=== PATIENT | female | born 1980 | race Caucasian/White ===

== ENCOUNTER 2019-07-04 12:32 | Emergency (ER) | payer OTHER ==
[~2019-07-04] VITALS: Ht 162.6 cm; Wt 61.2 kg
[2019-07-04 13:13] VITALS: BP 122/88
--- NOTE | 2019-07-04 13:16 | NUR ---
ED Nurse Note: pt came in due to mechanical fall c/o neck pain ermd eval done pt will be medicated.
--- NOTE | 2019-07-04 13:17 | Emergency Room Report ---
History of Present Illness General Chief Complaint: Neck Pain Source: Patient Present Illness HPI 39-year-old female presents to the emergency department complaining of 10 out of 10 severity pain diffusely in the soft tissues of the neck and the bilateral trapezius muscles. Patient reports status post slip and fall down some stairs yesterday she states she did not hit her head or have a loss of consciousness. Patient denies midline neck or back pain. Patient reports that she awoke this morning with a stiff neck and pain/tightness with attempts to move her head in certain directions. Patient reports she also has an associated progressive onset headache that did resolve on its own prior to arrival. Patient denies history of headaches. Patient denies taking blood thinning medications she denies nausea, vomiting, dizziness, syncope, weakness, abnormalities in motor movements or paresthesias. Patient reports she primarily landed on her right buttock and has tenderness and bruising to the soft tissue. Patient denies tailbone pain or saddle anesthesia. Patient reports she is ambulatory. She states she has not taken any medications for her symptoms. No other aggravating or relieving factors at this time. Denies fevers or photophobia. Allergies: Coded Allergies: No Known Allergies (Unverified , 07/04/19) Patient History Past Medical History: see triage record Past Surgical History: none Pertinent Family History: none Now: No Reviewed Nursing Documentation: PMH: Agreed; PSxH: Agreed Nursing Documentation-PMH Past Medical History: No History, Except For Review of Systems All Other Systems: negative except mentioned in HPI Physical Exam Vital Signs Date Time Temp Pulse Resp B/P (MAP) Pulse Ox O2 Delivery O2 Flow Rate FiO2 07/04/19 12:43 98.6 102 18 122/88 (99) 99 Room Air Sp02 EP Interpretation: reviewed, normal General Appearance: no apparent distress, alert, GCS 15, non-toxic Head: normocephalic, atraumatic Eyes: bilateral eye normal inspection, bilateral eye PERRL ENT: hearing grossly normal, normal voice Neck: full range of motion, tender lateral - bilateral trapezius muscles, no midline spinous process ttp. No palpable step-offs or obvious deformities in the cervical or thoracic regions. FROM. Respiratory: lungs clear, normal breath sounds, speaking full sentences Cardiovascular #1: regular rate, rhythm Musculoskeletal: normal range of motion, gait/station normal, tender - TTP posterior right thigh/ buttock. Neurologic: alert, motor strength/tone normal, oriented x3, sensory intact, responsive, speech normal Psychiatric: judgement/insight normal Skin: normal inspection Medical Decision Making PA Attestation Dr. Leon is my supervising Physician whom patient management has been discussed with. Diagnostic Impression: Primary Impression: Cervical strain, acute Qualified Codes: S16.1XXA - Strain of muscle, fascia and tendon at neck level , initial encounter Additional Impression: Strain of cervical portion of both trapezius muscles ER Course 39-year-old female presents to the emergency department complaining of 10 out of 10 severity pain diffusely in the soft tissues of the neck and the bilateral trapezius muscles. Patient reports status post slip and fall down some stairs yesterday she states she did not hit her head or have a loss of consciousness. Patient denies midline neck or back pain. Patient reports that she awoke this morning with a stiff neck and pain/tightness with attempts to move her head in certain directions. Patient reports she also has an associated progressive onset headache that did resolve on its own prior to arrival. Patient denies history of headaches. Patient denies taking blood thinning medications she denies nausea, vomiting, dizziness, syncope, weakness, abnormalities in motor movements or paresthesias. Patient reports she primarily landed on her right buttock and has tenderness and bruising to the soft tissue. Patient denies tailbone pain or saddle anesthesia. Patient reports she is ambulatory. She states she has not taken any medications for her symptoms. No other aggravating or relieving factors at this time. Denies fevers or photophobia. . Ddx considered but are not limited to Fracture, dislocation, contusion, Sprain/ Strain/Spasm, meningitis, torticollis just to name a few. Vital signs: are WNL, pt. is afebrile. H&PE are most consistent with muscle spasm and strain injury. no evidence to suggest acute fracture. no saddle anesthesia to suggest spinal chord injury at this time. Patient does not exhibit any focal neurological deficits. ORDERS: none required at this time. no imaging is warranted as the pt. does not exhibit bony tenderness on PE, and does not meet Nexus C-spine criteria. Discussed with patient reasoning for not performing CT imaging of the neck or head due to lack of red flag symptoms. The radiation exposure does not outweigh potential benefits of imaging and will not have any change in patient management with her current presentation. ED INTERVENTIONS: -350 mg Soma PO -Lidoderm TP -I do not identify an emergent condition at this time. With current presentation , pt. is stable for close outpatient follow up and conservative treatment. D/ w pt. to return promptly to ED with worsening or new symptoms.- Pt. verbalizes' understanding and agreement with proposed treatment plan. DISCHARGE: At this time pt. is stable for d/c to home. Will provide printed patient care instructions, and any necessary prescriptions. Care plan and follow up instructions have been discussed with the patient prior to discharge. Last Vital Signs Date Time Temp Pulse Resp B/P (MAP) Pulse Ox O2 Delivery O2 Flow Rate FiO2 07/04/19 12:43 98.6 102 18 122/88 (99) 99 Room Air Disposition: HOME, SELF-CARE Condition: Stable Scripts Ibuprofen* (MOTRIN*) 600 Mg Tablet 600 MG ORAL THREE TIMES A DAY, #30 TAB 0 Refills Prov: Karlie Box 07/04/19 Methocarbamol* (ROBAXIN-750*) 750 Mg Tablet 750 MG PO QID, #28 TAB 0 Refills Prov: Karlie Box 07/04/19 Lidocaine Patch* (Lidoderm Patch*) 1 Each Adh..patch 1 PATCH TOPIC DAILY, #30 PATCH 0 Refills Patch(es) may remain in place for up to 12 hours in any 24-hour period. Prov: Karlie Box 07/04/19 Referrals: NON PHYSICIAN (PCP) Departure Forms: Return to Work Return to Work Date: Jul 09, 2019 Work Restrictions: No Heavy Lifting Other Restrictions: light duty. May return Sooner if Symptoms have resolved. Return to Full Activity: Jul 09, 2019 Patient Instructions: Contusion, [id number], Soft Tissue Injury of the Neck, [id number] Additional Instructions: Take medications as directed. Follow up with a Primary Care Provider in 3-5 days, even if your symptoms have resolved. --Please review list of primary care clinics, if you do not already have a primary care provider Return sooner to ED if new symptoms occur, or current symptoms become worse. Do not drink alcohol, drive, or operate heavy machinery while taking Robaxin ( Muscle Relaxers) as this may cause drowsiness. - Please note that this Emergency Department Report was dictated using Dragon equalizer operator technology software, occasionally this can lead to erroneous entry secondary to interpretation by the dictation equipment. Karlie Box Jul 04, 2019 13:17
[2019-07-04] MEDS ORDERED: LIDODERM700 M1 TOPIC (13:27)
[2019-07-04] MEDS ORDERED: ROBAXIN-750750 MG PO (13:27)
[2019-07-04] MEDS ORDERED: IBUPROFEN600 MG ORAL (13:27)
[2019-07-04 13:36] VITALS: BP 122/88
--- NOTE | 2019-07-04 13:37 | NUR ---
ED Nurse Note: Pt cleared by health care Provider for discharge. DC instructions/prescription was given and explained to pt and verbalized understanding of teachings. All medical deviecs such as ID band removed. Pt is AAO x4, ambulatory and left with all personal belongings.
== END 2019-07-04 13:38 | disposition home or self-care (01) ==
LOC: EMR 12:50
DX: S16.1XXA Strain of muscle, fascia and tendon at neck level, initial encounter (principal); S46.812A Strain of other muscles, fascia and tendons at shoulder and upper arm level, left arm, initial encounter; S46.811A Strain of other muscles, fascia and tendons at shoulder and upper arm level, right arm, initial encounter; W10.9XXA Fall (on) (from) unspecified stairs and steps, initial encounter; Y93.01 Activity, walking, marching and hiking; Y92.9 Unspecified place or not applicable
CPT/HCPCS: 99282